=== PATIENT | male | born 1965 | race Caucasian/White ===

== ENCOUNTER 2018-01-11 13:58 | Emergency (ER) | payer BC, SELFPAY ==
[2018-01-11] MEDS ORDERED: LIDOCAINE 1% MPF 5 ML VIAL ONE (14:45)
[2018-01-11] MEDS ORDERED: HYDROCODONE/APAP 10/325 TAB ONE (15:00)
--- NOTE | 2018-01-11 15:49 | ER ---
Nurse's Notes [facility] Name: Arvind Sanderson Age: 52 yrs Sex: Male : 1965 Arrival Date: 01/11/2018 Time: 13:59 Bed 7 Private MD: Diagnosis: Hematoma of pinna, left ear Presentation: 01/11 14:22 Presenting complaint: Patient states: Left ear pain and swelling for 2 weeks. aj Transition of care: patient was not received from another setting of care. Onset of symptoms was December 28, 2017. Initial Sepsis Screen: Does the patient meet any 2 criteria? No. Patient's initial sepsis screen is negative. Does the patient have a suspected source of infection? No. Patient's initial sepsis screen is negative. Care prior to arrival: None. 14:22 Method Of Arrival: Ambulatory 14:22 Acuity: KENDY 3 aj Triage Assessment: 14:24 General: Appears in no apparent distress. comfortable, Behavior is calm, cooperative, aj appropriate for age. Pain: Complains of pain in left ear Pain currently is 10 out of 10 on a pain scale. EENT: swelling and redness to left upper ear. Neuro: Level of Consciousness is awake, alert, obeys commands, Oriented to person, place, time, situation, Appropriate for age. Respiratory: Airway is patent Respiratory effort is even, unlabored, Respiratory pattern is regular, symmetrical. Derm: Skin is intact, is healthy with good turgor, Skin is pink, warm \T\ dry. normal. Historical: - Allergies: 14:24 Ultram; aj - Home Meds: 14:24 losartan 50 mg Oral tab 1 tab once daily [Active]; enguvio [Active]; BRILINTA oral oral aj [Active]; - PMHx: 14:24 Diabetes - IDDM; Hypertension; Kidney stones; MRSA; Pericarditis; aj - PSHx: 14:24 Heart stents; aj - Immunization history:: Last tetanus immunization: up to date. - Social history:: Smoking status: Patient uses tobacco products, smokes one pack cigarettes per day. - Family history:: not pertinent. - Hospitalizations: : No recent hospitalization is reported. Screenin:45 Abuse screen: Denies threats or abuse. Denies injuries from another. Nutritional hb screening: No deficits noted. Tuberculosis screening: No symptoms or risk factors identified. Fall Risk None identified. Assessment: 14:45 General: Appears in no apparent distress. Behavior is calm, cooperative. Pain: Pain hb currently is 5 out of 10 on a pain scale. Neuro: Level of Consciousness is awake, alert, obeys commands, Oriented to person, place, time, situation. Cardiovascular: Capillary refill < 3 seconds Patient's skin is warm and dry. Respiratory: Airway is patent Trachea midline Respiratory effort is even, unlabored, Respiratory pattern is regular, symmetrical, Breath sounds are clear bilaterally. GI: No signs and/or symptoms were reported involving the gastrointestinal system. : No signs and/or symptoms were reported regarding the genitourinary system. EENT: No signs and/or symptoms were reported regarding the EENT system. Derm: abscess to left ear. Musculoskeletal: No signs and/or symptoms reported regarding the musculoskeletal system. 15:30 Reassessment: Patient appears in no apparent distress at this time. No changes from hb previously documented assessment. Patient and/or family updated on plan of care and expected duration. Pain level reassessed. Patient is alert, oriented x 3, equal unlabored respirations, skin warm/dry/pink. Vital Signs: 14:24 BP 129 / 91; Pulse 79; Resp 20; Temp 99.2; Pulse Ox 97% on R/A; Weight 70.31 kg; Height aj 5 ft. 9 in. (175.26 cm); Pain 10/10; 14:24 Body Mass Index 22.89 (70.31 kg, 175.26 cm) aj ED Course: 13:59 Patient arrived in ED. as 14:22 Triage completed. aj 14:24 Arm band placed on right wrist. Patient placed in an exam room. aj 14:28 Farhad Chen MD is Attending Physician. rn 14:32 Nuris Donato RN is Primary Nurse. hb 15:48 Irais Sarabia MD is Referral Physician. rn 15:55 Patient did not have IV access during this emergency room visit. ss 15:58 No provider procedures requiring assistance completed. hb Administered Medications: No medications were administered Outcome: 15:49 Discharge ordered by MD. rn 15:54 Discharged to home ambulatory. ss 15:54 Condition: good 15:54 Discharge instructions given to patient, family, Instructed on discharge instructions, follow up and referral plans. medication usage, Demonstrated understanding of instructions, follow-up care, medications, Prescriptions given X 1. 15:55 Patient left the ED. ss Signatures: Nila Perales RN RN aj Martinez, Amelia as Nieto, Roman, MD MD rn Smirch, Shelby, RN RN ss Baxter, Heather, RN RN
--- NOTE | 2018-01-11 15:50 | EDPHYS ---
Physician Documentation [facility] Name: Arvind Sanderson Age: 52 yrs Sex: Male : 1965 Arrival Date: 01/11/2018 Time: 13:59 Bed 7 Private MD: ED Physician Farhad Chen HPI: 01/11 15:44 This 52 yrs old Male presents to ER via Ambulatory with complaints of Ear rn Pain. 15:44 The patient presents with pain, swelling. The complaints affect the left ear. Onset: rn The symptoms/episode began/occurred 1 week(s) ago. Severity of symptoms: At their worst the symptoms were mild in the emergency department the symptoms are unchanged. The patient has not experienced similar symptoms in the past. Reports left ear pain and swelling thinks got bit by something recently, no travel outside of country, no other trauma, no drainage. No fever. . Historical: - Allergies: 14:24 Ultram; aj - Home Meds: 14:24 losartan 50 mg Oral tab 1 tab once daily [Active]; enguvio [Active]; BRILINTA oral oral aj [Active]; - PMHx: 14:24 Diabetes - IDDM; Hypertension; Kidney stones; MRSA; Pericarditis; aj - PSHx: 14:24 Heart stents; aj - Immunization history:: Last tetanus immunization: up to date. - Social history:: Smoking status: Patient uses tobacco products, smokes one pack cigarettes per day. - Family history:: not pertinent. - Hospitalizations: : No recent hospitalization is reported. ROS: 15:44 Constitutional: Negative for fever, chills, and weight loss, Eyes: Negative for injury, rn pain, redness, and discharge, ENT: Negative for injury Skin: Negative for injury Neuro: Negative for headache, weakness, numbness, tingling, and seizure. Exam: 15:44 Constitutional: This is a well developed, well nourished patient who is awake, alert, rn and in no acute distress. ENT: + left external ear with swelling, + fluctuance, no erythema or signs of infection Vital Signs: 14:24 BP 129 / 91; Pulse 79; Resp 20; Temp 99.2; Pulse Ox 97% on R/A; Weight 70.31 kg; Height aj 5 ft. 9 in. (175.26 cm); Pain 10/10; 14:24 Body Mass Index 22.89 (70.31 kg, 175.26 cm) karlo Procedures: 15:44 I \T\ D: Incision and drainage was performed for an abscess of the left left ear Prepped rn with Betadine, Anesthetized with 3 ml's 1% Lidocaine. Incised with #11 blade. Drained moderate amount serosanguinous fluid. bloody fluid. hematoma Dressinx4, plaster ear splint the patient tolerated the procedure well. MDM: 14:28 Patient medically screened. rn 15:44 Differential diagnosis: ear hematoma/abscess, serous. Data reviewed: vital signs, rn nurses notes, and as a result, I will discharge patient. Counseling: I had a detailed discussion with the patient and/or guardian regarding: the historical points, exam findings, and any diagnostic results supporting the discharge/admit diagnosis, the need for outpatient follow up, to return to the emergency department if symptoms worsen or persist or if there are any questions or concerns that arise at home. Response to treatment: the patient's symptoms have markedly improved after treatment, and as a result, I will discharge patient. Special discussion: I discussed with the patient/guardian in detail that at this point there is no indication for admission to the hospital. It is understood, however, that if the symptoms persist or worsen the patient needs to return immediately for re-evaluation. Based on the history and exam findings, there is no indication for further emergent testing or inpatient evaluation. I discussed with the patient/guardian the need to see the ENT specialist for further evaluation of the symptoms. ED course: Hematoma completely evacuated, splinted under pressure, will dc home with abx and ENT f/u. . Administered Medications: No medications were administered Disposition: 01/11/18 15:49 Discharged to Home. Impression: Hematoma of pinna, left ear. - Condition is Stable. - Discharge Instructions: Hematoma. - Prescriptions for Clindamycin HCl 300 mg Oral Capsule - take 1 capsule by ORAL route every 6 hours for 10 days; 40 capsule. - Medication Reconciliation Form, Thank You Letter, Antibiotic Education, Prescription Opioid Use form. - Follow up: Irais Sarabia MD; When: 5 - 6 days; Reason: Recheck today's complaints, Re-evaluation by your physician. - Problem is new. - Symptoms have improved. Signatures: Nila Perales RN RN Farhad Franks MD MD rn Smirch, Shelby, AUNDREA RN ss
== END 2018-01-11 15:55 | disposition home or self-care (01) ==
LOC: ER 13:58
PROC: 0991XZZ Drainage of Left External Ear, External Approach (ICD-10-PCS; principal; 2018-01-11)
DX: H61.122 Hematoma of pinna, left ear (principal); E11.9 Type 2 diabetes mellitus without complications; I10 Essential (primary) hypertension
CPT/HCPCS: 99282